=== PATIENT | female | born 1935 | race African-American/Black ===

== ENCOUNTER → 2023-11-21 | Outpatient (CLI) | payer MEDICARE, OTHER ==
[~2023-11-21] MED LIST: ALB5IS NEB; ALBU108A5 INH; ALLO300T2 PO; ATOR20TA50 PO; DEXT20CA PO; ERGO1CAP12 PO; FURO40TA4 PO; GABA-1250 PO; IPR002IS NEB; LEVO100T8 PO; MONT-8 PO; POTA-211 PO; RIV15T PO; SACU1TAB PO; VILA40TA2 PO
== END | disposition home or self-care (01) ==
LOC: Rad HDHVI 13:41
PROVIDERS: ATTEND Internal Medicine Cardiovascular Disease
DX: I73.9 Peripheral vascular disease, unspecified (principal); Z86.718 Personal history of other venous thrombosis and embolism
CPT/HCPCS: 93925

== ENCOUNTER → 2023-11-23 | Outpatient (CLI) | payer MEDICARE, OTHER ==
[~2023-11-23] VITALS: Ht 152.4 cm; Wt 106.6 kg
[~2023-11-23] MED LIST changes: +ADENOSINE 90 MG in GIVE UN-DILUTED 0 ML IV ONE; +ADENOSINE 90 MG/30 ML INJ IV ONE
== END | disposition home or self-care (01) ==
LOC: Rad HDHVI 12:43
PROVIDERS: ATTEND Internal Medicine Cardiovascular Disease
DX: R06.02 Shortness of breath (principal); R07.89 Other chest pain; E78.00 Pure hypercholesterolemia, unspecified; I73.9 Peripheral vascular disease, unspecified; I80.12 Phlebitis and thrombophlebitis of left femoral vein; I13.0 Hypertensive heart and chronic kidney disease with heart failure and stage 1 through stage 4 chronic kidney disease, or unspecified chronic kidney disease; N18.9 Chronic kidney disease, unspecified; I50.9 Heart failure, unspecified; I25.10 Atherosclerotic heart disease of native coronary artery without angina pectoris; F41.9 Anxiety disorder, unspecified; J44.9 Chronic obstructive pulmonary disease, unspecified; Z95.0 Presence of cardiac pacemaker; Z82.49 Family history of ischemic heart disease and other diseases of the circulatory system; Z79.899 Other long term (current) drug therapy
CPT/HCPCS: 78452; 93005; 96374; 96375; A9500; J0153

== ENCOUNTER → 2023-12-01 | Outpatient (CLI) | payer MEDICARE, OTHER ==
[~2023-12-01] MED LIST changes: -ADENOSINE 90 MG in GIVE UN-DILUTED 0 ML IV ONE; -ADENOSINE 90 MG/30 ML INJ IV ONE
== END | disposition home or self-care (01) ==
LOC: Rad HDHVI 15:59
PROVIDERS: ATTEND Internal Medicine Cardiovascular Disease
DX: I51.7 Cardiomegaly (principal); R06.02 Shortness of breath
CPT/HCPCS: 93306

== ENCOUNTER → 2024-01-16 | Outpatient (CLI) | payer MEDICARE, OTHER ==
[~2024-01-16] MED LIST changes: +GABA-339 PO; +POM PO; +SPIR25TA8 PO
[2024-01-16 13:00] VITALS: BP 124/60; PULSE 76; RESP 16; O2SAT 96
[2024-01-16 13:15] VITALS: BP 119/55; PULSE 70; RESP 16; O2SAT 96
== END | disposition home or self-care (01) ==
LOC: Rad HDHVI 12:41
PROVIDERS: ATTEND Internal Medicine Cardiovascular Disease
DX: Z01.818 Encounter for other preprocedural examination (principal); R06.02 Shortness of breath; R07.9 Chest pain, unspecified; I25.5 Ischemic cardiomyopathy; I50.9 Heart failure, unspecified
CPT/HCPCS: 71046; 93005; G0463

== ENCOUNTER 2024-01-19 06:45 | Day surgery (SDC) | payer MEDICARE, OTHER ==
[2024-01-16 15:42] LABS: Basophils # (auto) 0 10 ^3/uL (0-0.2); Basophils % (auto) 0.5 % (0.0-2.0); Eosinophils # (auto) 0.5 10 ^3/uL (0-0.8); Eosinophils % (auto) 6.8 % (0.0-7.0); Hematocrit 39.9 % (36.0-46.0); Hemoglobin 12.8 g/dL (12.2-16.2); Lymphocytes # (auto) 1.1 10 ^3/uL (0.4-5.4); Lymphocytes % (auto) 16.2 % (10.0-50.0); Mean Corpuscular Hgb Conc. 32.1 g/dL (32.0-36.0); Monocytes # (auto) 0.6 10 ^3/uL (0-1.3); Monocytes % (auto) 9.2 % (0.0-12.0); Neutrophils # (auto) 4.5 10 ^3/uL (1.6-8.6); Neutrophils % (auto) 67.3 % (37.0-80.0); Nucleated Red Blood Cells % 0.1 %; Platelet Count (auto) 144 10^3/uL (140-450); Red Blood Cells 4.75 10^6/uL (4.0-5.20); White Blood Cell 6.7 10^3/uL (4.4-10.8)
[2024-01-16 16:02] LABS: Chloride 109 mmol/L (98-107); Potassium 5.4 mmol/L (3.5-5.1); Sodium 139 mmol/L (136-145)
[2024-01-16 16:03] LABS: Anion Gap 3 (5-15); Carbon Dioxide 27 mmol/L (20-30)
[2024-01-16 16:04] LABS: Calcium 9.9 mg/dL (8.7-10.4)
[2024-01-16 16:08] LABS: BUN/Creatinine Ratio 14.8 (10.0-20.0); Blood Urea Nitrogen 27 mg/dL (9-23); Glucose 89 mg/dL (74-106)
[2024-01-16 16:29] LABS: INR 1.1 (0.9-1.15); Partial Thromboplastin Time 27.8 SEC (24.5-34.5); Prothrombin Time 11.6 sec (9.3-11.8)
[2024-01-19] VITALS (10 sets, daily range): BP systolic 102–124; BP diastolic 57–75; PULSE 70–72; RESP 16–19; TEMP 97; O2SAT 93–98
[~2024-01-19] VITALS: Ht 152.4 cm; Wt 107.0 kg
[2024-01-19] MEDS ORDERED: fentaNYL CITRATE 100 MCG/2 ML VL ONE (08:09)
[2024-01-19] MEDS ORDERED: ANGIOMAX 250 MG VIAL IV ONE (08:09)
[2024-01-19] MEDS ORDERED: SODIUM CHL 0.9% 0 ML ONE (08:10)
[2024-01-19] MEDS ORDERED: MIDAZOLAM HCL 2MG/2ML 2ml VIAL (1mg/ml) ONE (08:10)
[2024-01-19] MEDS ORDERED: LIDOCAINE 2%HCL (LOCAL ANESTH.) INJ 20ML MDV ONE (08:10)
[2024-01-19] MEDS ORDERED: IODIXANOL 320MG/ML 100ML BTL IV ONE (08:12)
== END 2024-01-19 11:00 | disposition home or self-care (01) ==
LOC: CATH 06:45
PROVIDERS: ATTEND Internal Medicine Cardiovascular Disease
DX: R06.02 Shortness of breath (principal); I25.10 Atherosclerotic heart disease of native coronary artery without angina pectoris; I25.84 Coronary atherosclerosis due to calcified coronary lesion; Z88.0 Allergy status to penicillin; Z88.1 Allergy status to other antibiotic agents; Z88.2 Allergy status to sulfonamides; Z88.8 Allergy status to other drugs, medicaments and biological substances; Z88.5 Allergy status to narcotic agent
CPT/HCPCS: 36415; 80048; 85025; 85610; 85730; 93458; C1760; C1894; J2250; J3010; Q9967; 99152

== ENCOUNTER 2024-02-10 09:38 | Inpatient (IN) | payer MEDICARE, OTHER ==
[~2024-02-10] VITALS: Ht 167.6 cm; Wt 107.2 kg
[2024-02-10 10:20] LABS: Urine Bacteria None Seen /hpf (None Seen)
[2024-02-10 10:30] LABS: Urine Blood 2+ /uL (Negative); Urine Clarity Clear (Clear); Urine Color Light-Yellow (Yellow); Urine Protein, UAD Negative (Negative); Urine Specific Gravity 1.017 (1.001-1.035); Urine Urobilinogen Normal (Negative); Urine WBC 11 /hpf (0 - 5)
[2024-02-10] MEDS: cefTRIAXone 1GM/50ML D5W 50 ML IV ONE (11:22)
[2024-02-10 11:56] LABS: Basophils # (auto) 0.1 10 ^3/uL (0-0.2); Eosinophils # (auto) 0.3 10 ^3/uL (0-0.8); Eosinophils % (auto) 4.4 % (0.0-7.0); Hematocrit 38.2 % (36.0-46.0); Hemoglobin 12.6 g/dL (12.2-16.2); Lymphocytes # (auto) 1.5 10 ^3/uL (0.4-5.4); Mean Corpuscular Hemoglobin 28.1 pg (28.0-32.0); Mean Corpuscular Hgb Conc. 32.9 g/dL (32.0-36.0); Mean Corpuscular Volume 85.5 fL (80.0-100.0); Monocytes # (auto) 0.5 10 ^3/uL (0-1.3); Neutrophils % (auto) 67.6 % (37.0-80.0); Platelet Count (auto) 160 10^3/uL (140-450); Red Blood Cells 4.47 10^6/uL (4.0-5.20); Red Cell Distribution Width 20.3 % (11.8-14.3); White Blood Cell 7.4 10^3/uL (4.4-10.8)
[2024-02-10 15:10] LABS: Alanine Aminotransferase 17 U/L (7-40); Albumin 4.1 g/dL (3.2-4.8); Alkaline Phosphatase 117 U/L (46-116); Anion Gap 7 (5-15); Aspartate Aminotransferase 21 U/L (13-40); BUN/Creatinine Ratio 18.9 (10.0-20.0); Bilirubin, Total 0.4 mg/dL (0.2-1.0); Blood Urea Nitrogen 33 mg/dL (9-23); Calcium 9.5 mg/dL (8.7-10.4); Carbon Dioxide 23 mmol/L (20-30); Chloride 109 mmol/L (98-107); Glucose 116 mg/dL (74-106); Potassium 4.3 mmol/L (3.5-5.1); Sodium 139 mmol/L (136-145); Total Protein 6.5 g/dL (5.7-8.2)
[2024-02-10] MEDS ORDERED: HYDROcodone-ACET 5/325MG TAB PO PRN (16:30)
[2024-02-10] MEDS ORDERED: IPRATROPIUM BROM 0.5 MG/2.5ML INH SOL NEB SCH (16:30)
[2024-02-10] MEDS ORDERED: ONDANSETRON HCL 4 MG/2 ML VIAL IV PRN (16:30)
[2024-02-10] MEDS ORDERED: DOCUSATE SOD 100 MG CAP PO PRN (16:30)
[2024-02-10] MEDS ORDERED: ALBUTEROL SULF 2.5 MG/0.5ML(0.5%) NEB SOLN NEB SCH (16:30)
[2024-02-10] MEDS ORDERED: ERGOCALCIFEROL 50,000 UNIT(1.25MG) CAP PO SCH (16:30)
[2024-02-10] MEDS ORDERED: HYDROmorphone HCL 2 MG/ML VL/or syr IV PRN (16:30)
[2024-02-10] MEDS: IPRATROPIUM BROM 0.5 MG/2.5ML INH SOL NEB SCH (18:10)
[2024-02-10] MEDS: ALBUTEROL SULF 2.5 MG/0.5ML(0.5%) NEB SOLN NEB SCH (18:10)
[2024-02-10 18:48] LABS: Erythrocyte Sedimentation Rate 9 mm/hr (0-20)
[2024-02-10 19:36] LABS: Protein, Urine 29.2 mg/dL (0.0-11.9)
[2024-02-10 19:38] LABS: Creatinine, Urine 119.53 mg/dL (30.0-125.0)
[2024-02-10] MEDS: LACTATED RINGER'S 1,000 ML IV ONE (21:20)
[2024-02-10] MEDS: metroNIDAZOLE 500MG/100ML 100 ML IV SCH (21:21)
[2024-02-10] MEDS: GABAPENTIN 300 MG CAP PO SCH (22:00)
[2024-02-10] MEDS: SODIUM CHLOR 0.9% PF (SALINE LOCK) 10ML VIAL/SYR IV SCH (22:17)
[2024-02-10] MEDS: CEFEPIME 2GM/50ML NS 50 ML IV SCH (22:34)
[2024-02-10 23:12] VITALS: BP 118/46; PULSE 73; RESP 19; TEMP 97.7; O2SAT 96
[2024-02-10] MEDS ORDERED: metroNIDAZOLE 500MG/100ML 100 ML IV SCH (23:30)
[2024-02-11] VITALS (15 sets, daily range): BP systolic 93–139; BP diastolic 39–61; PULSE 55–75; RESP 16–19; TEMP 97.6–99.8; O2SAT 92–100
[2024-02-11] MEDS: metroNIDAZOLE 500MG/100ML 100 ML IV SCH ×2 (04:53→14:39)
[2024-02-11] MEDS: PANTOPRAZOLE 40 MG/10 ML VIAL INJ IV SCH (05:00)
[2024-02-11 05:29] LABS: Basophils # (auto) 0 10 ^3/uL (0-0.2); Basophils % (auto) 0.3 % (0.0-2.0); Eosinophils # (auto) 0.2 10 ^3/uL (0-0.8); Eosinophils % (auto) 2.2 % (0.0-7.0); Hematocrit 41.2 % (36.0-46.0); Hemoglobin 13.4 g/dL (12.2-16.2); Lymphocytes # (auto) 0.5 10 ^3/uL (0.4-5.4); Lymphocytes % (auto) 6.4 % (10.0-50.0); Mean Corpuscular Hemoglobin 28.1 pg (28.0-32.0); Mean Corpuscular Hgb Conc. 32.6 g/dL (32.0-36.0); Mean Corpuscular Volume 86.2 fL (80.0-100.0); Monocytes # (auto) 0.2 10 ^3/uL (0-1.3); Monocytes % (auto) 2.8 % (0.0-12.0); Neutrophils # (auto) 7.4 10 ^3/uL (1.6-8.6); Neutrophils % (auto) 88.3 % (37.0-80.0); Nucleated Red Blood Cells % 0.2 %; Platelet Count (auto) 140 10^3/uL (140-450); Red Blood Cells 4.78 10^6/uL (4.0-5.20); White Blood Cell 8.3 10^3/uL (4.4-10.8)
[2024-02-11 05:46] LABS: Alanine Aminotransferase 17 U/L (7-40); Albumin 3.6 g/dL (3.2-4.8); Alkaline Phosphatase 98 U/L (46-116); Anion Gap 8 (5-15); Aspartate Aminotransferase 19 U/L (13-40); BUN/Creatinine Ratio 21.5 (10.0-20.0); Blood Urea Nitrogen 28 mg/dL (9-23); Calcium 8.9 mg/dL (8.7-10.4); Carbon Dioxide 19 mmol/L (20-30); Chloride 115 mmol/L (98-107); Glucose 106 mg/dL (74-106); Potassium 3.7 mmol/L (3.5-5.1); Sodium 142 mmol/L (136-145); Uric Acid 4.2 mg/dL (3.1-7.8)
[2024-02-11 05:47] LABS: Bilirubin, Total 0.6 mg/dL (0.2-1.0); Phosphorus 3.5 mg/dL (2.4-5.1); Total Protein 5.8 g/dL (5.7-8.2)
[2024-02-11] MEDS: LEVOTHYROXINE SODIUM 100 MCG TAB PO SCH (06:12)
[2024-02-11] MEDS: SPIRONOLACTONE 25 MG TAB PO SCH (09:37)
[2024-02-11] MEDS: FUROSEMIDE 40 MG TAB PO SCH (09:37)
[2024-02-11] MEDS: ENOXAPARIN SOD 30 MG/0.3 ML SYRINGE SC SCH (09:37)
[2024-02-11] MEDS ORDERED: VANCOMYCIN PER PHARMACY 0 MG IV SCH (12:15)
[2024-02-11] MEDS ORDERED: VANCOMYCIN 1GM/200ML 200 ML IV ONE (12:15)
[2024-02-11] MEDS: LINEZOLID 600MG/300ML 300 ML IV ONE (14:15)
[2024-02-11] MEDS ORDERED: diphenhdrAMINE HCL 50 MG/1 ML VL IV PRN (17:15)
[2024-02-11] MEDS: RIVAROXABAN 15 MG TAB PO SCH (17:33)
[2024-02-11] MEDS: diphenhdrAMINE HCL 50 MG/1 ML VL IV PRN (17:35)
[2024-02-11] MEDS: ATORVASTATIN 20 MG TAB PO SCH (17:36)
[2024-02-11] MEDS: ACETAMINOPHEN 325 MG TAB PO PRN (17:36)
[2024-02-11] MEDS: MONTELUKAST SODIUM 10 MG TAB PO SCH (21:50)
[2024-02-11] MEDS: KETOCONAZOLE 2 % TOPICAL CREAM 15GM TOP SCH (21:51)
[2024-02-11] MEDS: LINEZOLID 600MG/300ML 300 ML IV SCH (23:11)
[2024-02-12] VITALS (16 sets, daily range): BP systolic 90–150; BP diastolic 37–64; PULSE 69–74; RESP 16–19; TEMP 97.6–98.6; O2SAT 93–100
[2024-02-12 06:44] LABS: Basophils # (auto) 0 10 ^3/uL (0-0.2); Basophils % (auto) 0.2 % (0.0-2.0); Eosinophils # (auto) 0.4 10 ^3/uL (0-0.8); Eosinophils % (auto) 2.6 % (0.0-7.0); Hematocrit 37.8 % (36.0-46.0); Hemoglobin 12.7 g/dL (12.2-16.2); Lymphocytes # (auto) 0.6 10 ^3/uL (0.4-5.4); Lymphocytes % (auto) 4.8 % (10.0-50.0); Mean Corpuscular Hemoglobin 28.1 pg (28.0-32.0); Mean Corpuscular Hgb Conc. 33.6 g/dL (32.0-36.0); Mean Corpuscular Volume 83.6 fL (80.0-100.0); Monocytes # (auto) 0.5 10 ^3/uL (0-1.3); Monocytes % (auto) 3.5 % (0.0-12.0); Neutrophils # (auto) 12.1 10 ^3/uL (1.6-8.6); Neutrophils % (auto) 88.9 % (37.0-80.0); Nucleated Red Blood Cells % 0.1 %; Platelet Count (auto) 142 10^3/uL (140-450); Red Blood Cells 4.52 10^6/uL (4.0-5.20); White Blood Cell 13.6 10^3/uL (4.4-10.8)
[2024-02-12 07:04] LABS: Alanine Aminotransferase 15 U/L (7-40); Albumin 3.5 g/dL (3.2-4.8); Alkaline Phosphatase 82 U/L (46-116); Anion Gap 6 (5-15); Aspartate Aminotransferase 16 U/L (13-40); BUN/Creatinine Ratio 17.7 (10.0-20.0); Blood Urea Nitrogen 29 mg/dL (9-23); Calcium 9.1 mg/dL (8.7-10.4); Carbon Dioxide 21 mmol/L (20-30); Chloride 110 mmol/L (98-107); Glucose 118 mg/dL (74-106); Potassium 3.9 mmol/L (3.5-5.1); Sodium 137 mmol/L (136-145)
[2024-02-12 07:05] LABS: Bilirubin, Total 1.2 mg/dL (0.2-1.0); Phosphorus 3.3 mg/dL (2.4-5.1); Total Protein 5.5 g/dL (5.7-8.2)
[2024-02-12 07:29] LABS: Red Cell Distribution Width 20.5 % (11.8-14.3)
[2024-02-12 08:48] LABS: Anisocytosis Slight; Ovalocytes FEW; Platelet Estimate Adequate
[2024-02-12] MEDS: SODIUM CHLORIDE 0.9% 1,000 ML IV ONE (16:24)
[2024-02-12] MEDS: diphenhdrAMINE HCL 25 MG CAP PO PRN (21:22)
[2024-02-13] VITALS (12 sets, daily range): BP systolic 110–141; BP diastolic 51–78; PULSE 69–73; RESP 16–20; TEMP 97.7–98.1; O2SAT 93–100
[2024-02-13 06:46] LABS: Basophils # (auto) 0 10 ^3/uL (0-0.2); Basophils % (auto) 0.2 % (0.0-2.0); Eosinophils # (auto) 0.6 10 ^3/uL (0-0.8); Eosinophils % (auto) 6.4 % (0.0-7.0); Hematocrit 36.8 % (36.0-46.0); Lymphocytes # (auto) 0.8 10 ^3/uL (0.4-5.4); Lymphocytes % (auto) 8.7 % (10.0-50.0); Mean Corpuscular Hemoglobin 27.5 pg (28.0-32.0); Mean Corpuscular Hgb Conc. 32.8 g/dL (32.0-36.0); Monocytes # (auto) 0.6 10 ^3/uL (0-1.3); Monocytes % (auto) 6.3 % (0.0-12.0); Neutrophils # (auto) 7.3 10 ^3/uL (1.6-8.6); Neutrophils % (auto) 78.4 % (37.0-80.0); Nucleated Red Blood Cells % 0.1 %; Platelet Count (auto) 129 10^3/uL (140-450); Red Blood Cells 4.37 10^6/uL (4.0-5.20); Red Cell Distribution Width 20.2 % (11.8-14.3); White Blood Cell 9.3 10^3/uL (4.4-10.8)
[2024-02-13 06:53] LABS: Urine Bacteria FEW /hpf (None Seen); Urine Blood 2+ /uL (Negative); Urine Color Yellow (Yellow); Urine Protein, UAD TRACE (Negative); Urine Specific Gravity 1.014 (1.001-1.035); Urine Urobilinogen Normal (Negative); Urine WBC 9 /hpf (0 - 5)
[2024-02-13 06:57] LABS: Protein, Urine 45.1 mg/dL (0.0-11.9)
[2024-02-13 06:59] LABS: Urine Clarity Hazy (Clear)
[2024-02-13 07:04] LABS: Alanine Aminotransferase 15 U/L (7-40); Alkaline Phosphatase 79 U/L (46-116); Anion Gap 8 (5-15); BUN/Creatinine Ratio 15.8 (10.0-20.0); Blood Urea Nitrogen 22 mg/dL (9-23); Carbon Dioxide 22 mmol/L (20-30); Chloride 108 mmol/L (98-107); Glucose 94 mg/dL (74-106); Potassium 3.7 mmol/L (3.5-5.1); Sodium 138 mmol/L (136-145)
[2024-02-13 07:05] LABS: Albumin 3.5 g/dL (3.2-4.8); Aspartate Aminotransferase 16 U/L (13-40)
[2024-02-13 07:06] LABS: Bilirubin, Total 0.7 mg/dL (0.2-1.0); Total Protein 5.5 g/dL (5.7-8.2)
[2024-02-13 12:57] LABS: Hepatitis B Surface Antigen Negative (Negative)
[2024-02-13 13:19] LABS: Hepatitis C Antibody Negative (Negative)
[2024-02-14] VITALS (15 sets, daily range): BP systolic 98–138; BP diastolic 46–66; PULSE 66–77; RESP 15–18; TEMP 97.2–98.4; O2SAT 93–100
[2024-02-14 02:22] LABS: COVID19 ANTIGEN SOFIA FIA NEGATIVE (NEGATIVE)
[2024-02-14 06:47] LABS: Basophils # (auto) 0 10 ^3/uL (0-0.2); Basophils % (auto) 0.3 % (0.0-2.0); Eosinophils # (auto) 0.2 10 ^3/uL (0-0.8); Eosinophils % (auto) 3.1 % (0.0-7.0); Hematocrit 37.9 % (36.0-46.0); Hemoglobin 12.3 g/dL (12.2-16.2); Lymphocytes % (auto) 12.8 % (10.0-50.0); Mean Corpuscular Hemoglobin 27.3 pg (28.0-32.0); Mean Corpuscular Hgb Conc. 32.4 g/dL (32.0-36.0); Mean Corpuscular Volume 84.3 fL (80.0-100.0); Monocytes # (auto) 0.5 10 ^3/uL (0-1.3); Monocytes % (auto) 6.6 % (0.0-12.0); Neutrophils % (auto) 77.2 % (37.0-80.0); Nucleated Red Blood Cells % 0.2 %; Platelet Count (auto) 139 10^3/uL (140-450); Red Cell Distribution Width 20.1 % (11.8-14.3); White Blood Cell 7.8 10^3/uL (4.4-10.8)
[2024-02-14 07:06] LABS: Alanine Aminotransferase 16 U/L (7-40); Albumin 3.7 g/dL (3.2-4.8); Alkaline Phosphatase 81 U/L (46-116); Anion Gap 9 (5-15); Aspartate Aminotransferase 18 U/L (13-40); BUN/Creatinine Ratio 13.3 (10.0-20.0); Blood Urea Nitrogen 17 mg/dL (9-23); Calcium 9.4 mg/dL (8.7-10.4); Carbon Dioxide 22 mmol/L (20-30); Chloride 108 mmol/L (98-107); Glucose 109 mg/dL (74-106); Potassium 3.6 mmol/L (3.5-5.1); Sodium 139 mmol/L (136-145)
[2024-02-14 07:07] LABS: Bilirubin, Total 0.8 mg/dL (0.2-1.0); Total Protein 5.8 g/dL (5.7-8.2)
[2024-02-14] MEDS: NUEDEXTA PO SCH (10:00)
[2024-02-14] MEDS ORDERED: SACUBITRIL-VALSARTAN 24mg/26mg TAB PO SCH (22:00)
[2024-02-14] MEDS ORDERED: NUEDEXTA PO SCH (22:00)
[2024-03-04] MEDS ORDERED: KETOCONAZOLE 2 % TOPICAL CREAM 15GM TOP SCH (22:00)
== END 2024-02-14 20:30 | DRG 871 ==
LOC: ER 09:38 → OVERFLOW 16:19 → WEST WING 22:08
PROVIDERS: ADMIT Internal Medicine; ATTEND Family Medicine
PROC: 05HF33Z Insertion of Infusion Device into Left Cephalic Vein, Percutaneous Approach (ICD-10-PCS; principal; 2024-02-14)
PROC: B54NZZA Ultrasonography of Left Upper Extremity Veins, Guidance (ICD-10-PCS; 2024-02-14)
DX: A41.2 Sepsis due to unspecified staphylococcus (principal); N17.0 Acute kidney failure with tubular necrosis; I13.0 Hypertensive heart and chronic kidney disease with heart failure and stage 1 through stage 4 chronic kidney disease, or unspecified chronic kidney disease; I50.42 Chronic combined systolic (congestive) and diastolic (congestive) heart failure; N39.0 Urinary tract infection, site not specified; N76.4 Abscess of vulva; L03.314 Cellulitis of groin; B35.6 Tinea cruris; E11.22 Type 2 diabetes mellitus with diabetic chronic kidney disease; E78.00 Pure hypercholesterolemia, unspecified; J44.9 Chronic obstructive pulmonary disease, unspecified; N18.32 Chronic kidney disease, stage 3b; I25.10 Atherosclerotic heart disease of native coronary artery without angina pectoris; F41.9 Anxiety disorder, unspecified; N20.0 Calculus of kidney; Z20.822 Contact with and (suspected) exposure to COVID-19; N28.1 Cyst of kidney, acquired; F32.9 Major depressive disorder, single episode, unspecified; Z88.6 Allergy status to analgesic agent; Z88.1 Allergy status to other antibiotic agents; Z88.0 Allergy status to penicillin; Z88.2 Allergy status to sulfonamides; Z88.8 Allergy status to other drugs, medicaments and biological substances; Z79.899 Other long term (current) drug therapy; Z88.3 Allergy status to other anti-infective agents; Z91.09 Other allergy status, other than to drugs and biological substances; Z95.810 Presence of automatic (implantable) cardiac defibrillator; I25.2 Old myocardial infarction; Z87.440 Personal history of urinary (tract) infections; Z82.49 Family history of ischemic heart disease and other diseases of the circulatory system; Z83.3 Family history of diabetes mellitus
CPT/HCPCS: 36415; 74176; 76775; 80053; 81001; 82570; 83605; 83690; 83880; 84100; 84156; 84300; 84550; 85025; 85652; 86141; 86803; 87040; 87077; 87086; 87186; 87340; 87426; 94640; 96365; 96366; 96368; 97163; G0378; J0692; J2470; J3490

== ENCOUNTER → 2024-05-01 | Outpatient (CLI) | payer MEDICARE, OTHER ==
[2024-05-01 12:37] LABS: Alanine Aminotransferase 17 U/L (7-40); Albumin 3.9 g/dL (3.2-4.8); Alkaline Phosphatase 94 U/L (46-116); Anion Gap 8 (5-15); Aspartate Aminotransferase 21 U/L (13-40); BUN/Creatinine Ratio 14.1 (10.0-20.0); Blood Urea Nitrogen 19 mg/dL (9-23); Calcium 10.1 mg/dL (8.7-10.4); Carbon Dioxide 28 mmol/L (20-31); Chloride 109 mmol/L (98-107); Glucose 99 mg/dL (74-106); Sodium 145 mmol/L (136-145)
[2024-05-01 12:38] LABS: Bilirubin, Total 1.2 mg/dL (0.2-1.0); Total Protein 6.2 g/dL (5.7-8.2)
== END | disposition home or self-care (01) ==
LOC: LAB 11:20
PROVIDERS: ATTEND Internal Medicine
CPT/HCPCS: 36415; 80053

== ENCOUNTER 2024-12-20 12:23 | Outpatient (CLI) | payer MEDICARE, OTHER ==
[2024-12-20 12:46] LABS: Hematocrit 38.0 % (36.0-46.0); Hemoglobin 12.3 g/dL (12.2-16.2); Mean Corpuscular Hemoglobin 27.6 pg (28.0-32.0); Mean Corpuscular Volume 85.1 fL (80.0-100.0); Nucleated Red Blood Cells % 0.2 %
[2024-12-20 13:17] LABS: Urine Protein, UAD Negative (Negative)
[2024-12-20 13:21] LABS: Alanine Aminotransferase 13 U/L (7-40); Alkaline Phosphatase 80 U/L (46-116); Calcium 10.1 mg/dL (8.7-10.4); Carbon Dioxide 25 mmol/L (20-31); Glucose 83 mg/dL (74-106); Triglycerides 80 mg/dL (< 150)
[2024-12-20 13:22] LABS: Albumin 4.1 g/dL (3.2-4.8); Anion Gap 8 (5-15); BUN/Creatinine Ratio 23.1 (10.0-20.0); Bilirubin, Total 0.6 mg/dL (0.2-1.0); Cholesterol 144 mg/dL (< 200); HDL Cholesterol 55 mg/dL (40-59); Potassium 4.4 mmol/L (3.5-5.1); Sodium 141 mmol/L (136-145); Total Protein 6.1 g/dL (5.7-8.2)
[2024-12-20 13:23] LABS: Blood Urea Nitrogen 40 mg/dL (9-23); Chloride 108 mmol/L (98-107)
[2024-12-20 13:25] LABS: Free T4 (Free Thyroxine) 1.4 ng/dL (0.89-1.76)
== END 2024-12-20 17:00 | disposition home or self-care (01) ==
LOC: LAB 12:23
PROVIDERS: ATTEND Internal Medicine
DX: I50.23 Acute on chronic systolic (congestive) heart failure (principal); E78.00 Pure hypercholesterolemia, unspecified; Z13.1 Encounter for screening for diabetes mellitus; Z00.01 Encounter for general adult medical examination with abnormal findings
CPT/HCPCS: 36415; 80053; 80061; 81001; 82607; 82746; 83036; 84155; 84165; 84439; 84443; 85025

== ENCOUNTER 2025-02-27 11:25 | Outpatient (CLI) | payer MEDICARE, OTHER | END 2025-02-27 17:00 | disposition home or self-care (01) | LOC: LAB 11:25 | PROVIDERS: ATTEND Psychiatry & Neurology Neurology | DX: E11.22 Type 2 diabetes mellitus with diabetic chronic kidney disease (principal); I50.42 Chronic combined systolic (congestive) and diastolic (congestive) heart failure; N18.9 Chronic kidney disease, unspecified; Z64.1 Problems related to multiparity | CPT/HCPCS: 82728; 83540 ==

== ENCOUNTER → 2025-03-22 | Outpatient (CLI) | payer MEDICARE ==
[2025-03-22 15:10] LABS: Hematocrit 36.3 % (36.0-46.0); Hemoglobin 11.5 g/dL (12.2-16.2); Mean Corpuscular Hemoglobin 27.5 pg (28.0-32.0); Mean Corpuscular Volume 87.4 fL (80.0-100.0); Nucleated Red Blood Cells % 0.0 %
[2025-03-22 15:26] LABS: Urine Protein, UAD Negative (Negative)
[2025-03-22 15:29] LABS: Alanine Aminotransferase 16 U/L (7-40); Albumin 4.0 g/dL (3.2-4.8); Alkaline Phosphatase 85 U/L (46-116); Anion Gap 10 (5-15); BUN/Creatinine Ratio 19.1 (10.0-20.0); Calcium 9.5 mg/dL (8.7-10.4); Carbon Dioxide 23 mmol/L (20-31); Glucose 81 mg/dL (74-106); Magnesium 2.2 mg/dL (1.6-2.6); Potassium 4.9 mmol/L (3.5-5.1); Sodium 143 mmol/L (136-145); Total Protein 6.4 g/dL (5.7-8.2); Uric Acid 5.4 mg/dL (3.1-7.8)
[2025-03-22 15:30] LABS: Bilirubin, Total 0.8 mg/dL (0.2-1.0)
[2025-03-22 15:33] LABS: Blood Urea Nitrogen 25 mg/dL (9-23); Chloride 110 mmol/L (98-107)
[2025-03-22 15:34] LABS: Protein, Urine 23.6 mg/dL (1-14)
== END | disposition home or self-care (01) ==
LOC: LAB 14:51
PROVIDERS: ATTEND Student in an Organized Health Care Education/Training Program
DX: I13.0 Hypertensive heart and chronic kidney disease with heart failure and stage 1 through stage 4 chronic kidney disease, or unspecified chronic kidney disease (principal); N18.30 Chronic kidney disease, stage 3 unspecified; E11.22 Type 2 diabetes mellitus with diabetic chronic kidney disease; I50.9 Heart failure, unspecified; E11.21 Type 2 diabetes mellitus with diabetic nephropathy; M10.9 Gout, unspecified; N39.0 Urinary tract infection, site not specified; R80.9 Proteinuria, unspecified; E21.3 Hyperparathyroidism, unspecified; E55.9 Vitamin D deficiency, unspecified; D63.1 Anemia in chronic kidney disease
CPT/HCPCS: 36415; 80053; 81001; 82306; 82570; 83735; 84100; 84156; 84550; 85025